=== PATIENT | male | born 1980 | race Caucasian/White ===

== ENCOUNTER 2018-09-26 11:54 | Observation (INO) | payer MEDICARE, MEDICAID ==
[~2018-09-26] VITALS: Ht 180.3 cm; Wt 115.0 kg
[2018-09-26 12:32] LABS: BASOPHILS # (AUTO) 0.11 x10^3/uL (0-0.1); BASOPHILS % (AUTO) 2 % (0-1); EOSINOPHILS # (AUTO) 0.14 x10^3/uL (0-0.4); EOSINOPHILS % (AUTO) 2 % (1-7); LYMPHOCYTES # (AUTO) 1.96 x10^3/uL (1-3.4); LYMPHOCYTES % (AUTO) 26 % (22-44); MD NO; MEAN CORPUSCULAR HEMOGLOBIN 29.6 pg (27.5-34.5); MEAN CORPUSCULAR HGB CONC 34.6 g/dL (33.2-36.2); MEAN CORPUSCULAR VOLUME 85.6 fL (81-97); MEAN PLATELET VOLUME 8.8 fL (7.4-10.4); MONOCYTES % (AUTO) 4 % (2-9); NEUTROPHILS # (AUTO) 4.91 x10^3/uL (1.8-6.8); NEUTROPHILS % (AUTO) 66 % (42-75); PLATELET COUNT 311 x10^3/uL (130-400); RED BLOOD COUNT 5.53 x10^6/uL (4.38-5.82); RED CELL DISTRIBUTION WIDTH 13.6 % (9.4-14.8)
[2018-09-26 12:43] LABS: ALBUMIN 4.4 g/dL (3.4-5.0); ANION GAP 6 mmol/L (5-15); CHLORIDE 106 mmol/L (98-107); SALICYLATE LEVEL 3.7 mg/dL (2.8-20.0)
[2018-09-26 12:52] LABS: ACETAMINOPHEN < 2 mcg/mL (10-30)
--- NOTE | 2018-09-26 12:55 | NUR ---
Pt presents from [facility] for SI. Pt states he was not feeling right and went to [facility]. Pt states thoughts of hanging himself. No prior attempts per pt but has had thoughts in the past and been hospitalized x3. Pt denies triggering event and denies SI at this time. Pt states has been taking meds Zoloft and Abilify. Pt pleasent and NAD at this time.
[2018-09-26] MEDS ORDERED: ARIP2TAB2 PO (14:11)
[2018-09-26] MEDS ORDERED: SERT100T PO (14:11)
[2018-09-26 14:20] LABS: AMPHETAMINE SCREEN, URINE Negative (Negative); BARBITURATE SCREEN, URINE Negative (Negative); BENZODIAZEPINE SCREEN, URINE Negative (Negative); CANNABINOID SCREEN, URINE Negative (Negative); COCAINE SCREEN, URINE Negative (Negative); METHADONE SCREEN, URINE Negative (Negative); OPIATE SCREEN, URINE Negative (Negative)
[2018-09-26] MEDS ORDERED: ACETAMINOPHEN 325 MG TABLET PO PRN (17:30)
--- NOTE | 2018-09-26 19:52 | NUR ---
Received report from Stephanie TORRE. Pt is calm and cooperative and will shortly be transported to [address] [place] [address] in [address].
--- NOTE | 2018-09-26 20:02 | NUR ---
Kumar sullivan in [facility] - 09/26/18 at 2001 by JACEK Gave repor to MARIO Mccarthy
--- NOTE | 2018-09-26 20:03 | NUR ---
Gave report to YELITZA Mccarthy on [address]. Pt will be transported to [address] shortly.
[2018-09-26 20:24] VITALS: BP 132/83
[2018-09-27] MEDS ORDERED: ARIPIPRAZOLE 15 MG TABLET PO SCH (09:00)
[2018-09-27] MEDS ORDERED: SERTRALINE 100MG TABLET PO SCH (09:00)
[2018-09-27] MEDS ORDERED: ARIPIPRAZOLE 2 MG TABLET PO SCH (09:00)
== END 2018-09-26 23:46 ==
LOC: ED 16:08 → EDIP 16:09 → INTOOBSV 16:09 → ED 18:05 → 2N 20:20
PROVIDERS: ADMIT Internal Medicine; ATTEND Internal Medicine
DX: R45.851 Suicidal ideations (principal); E66.01 Morbid (severe) obesity due to excess calories; F17.210 Nicotine dependence, cigarettes, uncomplicated; F17.290 Nicotine dependence, other tobacco product, uncomplicated; F33.2 Major depressive disorder, recurrent severe without psychotic features; F84.0 Autistic disorder; Z79.899 Other long term (current) drug therapy; Z83.3 Family history of diabetes mellitus
CPT/HCPCS: 36415; 80048; 80307; 80329; 82040; 85025; 99284; G0378; G0480